=== PATIENT | male | born 1980 | race Caucasian/White ===

== ENCOUNTER 2022-03-31 21:06 | Emergency (ER) | payer BC, OTHER ==
[~2022-03-31] VITALS: Ht 180.3 cm; Wt 68.0 kg
--- NOTE | 2022-03-31 23:25 | NUR ---
CG TIFFANIE: [phone]
[2022-03-31 23:30] VITALS: BP 133/80
== END 2022-04-01 00:11 | disposition home or self-care (01) ==
LOC: ER 21:16
DX: R10.9 Unspecified abdominal pain (principal); F17.200 Nicotine dependence, unspecified, uncomplicated; Z60.2 Problems related to living alone